=== PATIENT | female | born 1985 | race Caucasian/White ===

== ENCOUNTER 2016-09-30 13:40 | Emergency (ER) | payer BC ==
[~2016-09-30] VITALS: Ht 160 cm; Wt 105.6 kg
[~2016-09-30 13:40] MED LIST: BCPILLS PO
[2016-09-30 13:42] VITALS: TEMP 36.8; Ht 160 cm; Wt 105.6 kg
[2016-09-30] MEDS ORDERED: SODIUM CHLORIDE 0.9% 1000ML 1,000 ML IV STA ×2 (13:50→15:17)
[2016-09-30] MEDS ORDERED: ONDANSETRON INJ 2 MG/ML 2 ML VIAL IV STA ×2 (13:50→15:29)
[2016-09-30] MEDS ORDERED: FENTANYL CITRATE INJ 50 MCG/1 ML 2 ML VIAL IV ONE (14:00)
[2016-09-30 14:28] LABS: ALT/SGPT 18 U/L (12-78); BLOOD UREA NITROGEN 11 mg/dl (7-18); BUN/CREATININE RATIO 13.8 (10-20); CALCIUM 8.9 mg/dl (8.5-10.1); CARBON DIOXIDE 18 mmol/L (21-32); CHLORIDE 107 mmol/L (98-107); CREATININE 0.76 mg/dl (0.60-1.20); GLUCOSE 91 mg/dl (70-99); POTASSIUM 3.7 mmol/L (3.5-5.1); SODIUM 140 mmol/L (136-145)
[2016-09-30 14:31] LABS: ALKALINE PHOSPHATASE 65 U/L (45-117); AST/SGOT 14 U/L (15-37)
[2016-09-30] MEDS ORDERED: HYDROmorphone INJ 1 MG/ML SYR IV STA (15:17)
[2016-09-30 15:24] LABS: URINE APPEARANCE CLEAR (CLEAR); URINE BILIRUBIN NEG (NEG); URINE COLOR YELLOW; URINE EPITHELIAL CELL AUTO >30 /lpf (0-5); URINE NITRITE NEG (NEG); URINE SPECIFIC GRAVITY 1.021 (1.000-1.030); UROBILINOGEN NEG (NEG); ZZUR CULT IF INDIC CLEAN CATCH YES
[2016-09-30 15:26] LABS: MANUAL MICROSCOPIC REQUIRED? NO; REVIEW REQ? NO
[2016-09-30] MEDS ORDERED: OPTIRAY 320 IV PRN (15:30)
[2016-09-30 15:53] LABS: BASO % 0.2 %; BASO ABS # 0.02 K/uL (0-0.2); COMPLETE YES; EOS % 0.8 %; HEMATOCRIT 42.2 % (37-47); IG% 0.6 %; LYMPH % 11.2 %; LYMPH ABS # 1.46 K/uL (1.2-3.4); MEAN CELL VOLUME 86.3 fL (80-100); MEAN CORPUSCULAR HEMOGLOBIN 30.5 pg (25-34); MEAN CORPUSCULAR HGB CONC 35.3 g/dl (32-36); MEAN PLATELET VOLUME 9.5 fL (7.4-10.4); MONO % 2.9 %; NEUT % 84.3 %; PLATELET COUNT 407 K/uL (130-400); RED BLOOD COUNT 4.89 M/uL (4.2-5.4); WHITE BLOOD COUNT 13.03 K/uL (4.8-10.8)
--- NOTE | 2016-09-30 15:53 | DIAGNOSTIC IMAGING REPORT ---
CT ABD/PELVIS IV CONTRAST ONLY CLINICAL HISTORY: diffuse lower abdominal pain, vomiting COMPARISON STUDY: None. TECHNIQUE: Following the IV administration of 119 mL of Optiray-320, CT scan of the abdomen and pelvis was performed from the lung bases to the proximal femurs. Images are reviewed in the axial, sagittal, and coronal planes. IV contrast was administered without complication. CT DOSE: 1178.67 mGy.cm FINDINGS: Lower chest: The heart is normal in size and configuration, without pericardial effusion. The lung bases and pleural spaces are clear. Liver: The contrast-enhanced liver is normal in size, contour, and attenuation. There is no intrahepatic biliary ductal dilatation. The hepatic veins and portal veins are patent. Gallbladder: Unremarkable. Spleen: Normal in size and attenuation. Pancreas: Unremarkable. Adrenal glands: Unremarkable. Kidneys: There are tangential upper pole right renal cyst measuring 23 mm in aggregate. There is no hydronephrosis. Bowel: There are no transition zones indicate bowel obstruction. There is no evidence of acute diverticulitis. There is no evidence of acute appendicitis. Peritoneum: There is no intraperitoneal free air or abdominal ascites. Vasculature: The abdominal aorta is normal in course and caliber. Adenopathy: None. Pelvic viscera: The bladder, and pelvic viscera are unremarkable. Skeletal structures: No destructive osseous lesions are seen. IMPRESSION: 1. No acute intra-abdominal or pelvic findings 2. No evidence of bowel obstruction. No evidence of free air 3. No evidence of acute diverticulitis. No evidence of acute appendicitis. Electronically signed by: Travon Davison M.D. 09/30/2016 3:51 PM Dictated Date/Time: 09/30/2016 3:48 PM
[2016-09-30] MEDS ORDERED: CEFTRIAXONE SOD INJ 1 GM ADDVIAL IV STA (16:27)
[2016-09-30] MEDS ORDERED: ONDA4TAB10 SL (16:52)
[2016-09-30] MEDS ORDERED: CEPH500C PO (16:52)
--- NOTE | 2016-09-30 16:52 | EMERGENCY ROOM VISIT NOTE ---
History Report prepared by Lisa: Leonardo Torres Under the Supervision of: Dr. Manjinder Taveras M.D. First contact with patient: 13:47 Chief Complaint: GI ASSESSMENT Stated Complaint: SEVERE PAIN AROUND INTESTINES, VOMITING History of Present Illness The patient is a 31 year old female who presents to the Emergency Room with complaints of persistent vomiting that started this morning. The patient also complains of severe lower abdominal pain. The pain does not radiate to her back. She denies any fevers, diarrhea, blood in her stools or vomit, burning with urination. leg swelling, or rashes. The patient cannot keep anything down without vomiting. She hasn't taken anything for nausea. The patient has a history of endometriosis. She cannot recall her last period as she has been on control for years. Source of History: patient Onset: this morning Position: other (GI) Quality: other (vomiting) Timing: other (persistent) Associated Symptoms: + abdominal pain, + nausea, No back pain, No diarrhea, No fevers, No hematochezia, No rash, No urinary symptoms Review of Systems See HPI for pertinent positives & negatives. A total of 10 systems reviewed and were otherwise negative. Past Medical & Surgical Medical Problems: (1) Endometriosis Family History Cancer Diabetes mellitus Heart disease Hypertension Lung disease Social History Smoking Status: Never Smoker Alcohol Use: occasionally Marital Status: Housing Status: lives with family Current/Historical Medications Scheduled Control Pills ( Control Pills), 1 TAB PO DAILY Cephalexin Monohydrate (Keflex), 500 MG PO TID Ondasetron Odt (Zofran Odt), 4 MG SL Q6H Allergies Coded Allergies: Ranitidine (Verified Allergy, Unknown, rash, 09/30/16) Physical Exam Vital Signs Date Time Temp Pulse Resp B/P Pulse Ox O2 Delivery O2 Flow Rate FiO2 09/30/16 17:16 82 16 129/78 97 Room Air 09/30/16 16:04 87 18 123/77 99 Room Air 09/30/16 15:03 95 18 144/83 98 Room Air 09/30/16 13:42 36.8 121 18 126/80 97 Room Air Physical Exam GENERAL: Patient is uncomfortable appearing, crying, in moderate distress. HEENT: No acute trauma, normocephalic atraumatic, mucous membranes moist, no nasal congestion, no scleral icterus. NECK: No stridor, no adenopathy, no meningismus, trachea is midline. LUNGS: No dyspnea. Clear to auscultation and equal bilaterally. No wheeze, no rhonchi. HEART: Tachycardic, regular rhythm. No murmurs, rubs, gallops appreciated. ABDOMEN: Soft, vague suprapubic tenderness to palpation, bowel sounds positive, no masses appreciated, no peritonitis. BACK: No midline tenderness, no CVA tenderness EXTREMITIES: Normal motion all extremities, no cyanosis, no edema. NEUROLOGIC: Alert and oriented, no acute motor or sensory deficits, no focal weakness, cranial nerves grossly intact. SKIN: No rash, no jaundice, no diaphoresis. Medical Decision & Procedures ER Provider Diagnostic Interpretation: CT results as stated below per interpretation by me and the radiologist: CT ABD/PELVIS IV CONTRAST ONLY CLINICAL HISTORY: diffuse lower abdominal pain, vomiting COMPARISON STUDY: None. TECHNIQUE: Following the IV administration of 119 mL of Optiray-320, CT scan of the abdomen and pelvis was performed from the lung bases to the proximal femurs. Images are reviewed in the axial, sagittal, and coronal planes. IV contrast was administered without complication. CT DOSE: 1178.67 mGy.cm FINDINGS: Lower chest: The heart is normal in size and configuration, without pericardial effusion. The lung bases and pleural spaces are clear. Liver: The contrast-enhanced liver is normal in size, contour, and attenuation. There is no intrahepatic biliary ductal dilatation. The hepatic veins and portal veins are patent. Gallbladder: Unremarkable. Spleen: Normal in size and attenuation. Pancreas: Unremarkable. Adrenal glands: Unremarkable. Kidneys: There are tangential upper pole right renal cyst measuring 23 mm in aggregate. There is no hydronephrosis. Bowel: There are no transition zones indicate bowel obstruction. There is no evidence of acute diverticulitis. There is no evidence of acute appendicitis. Peritoneum: There is no intraperitoneal free air or abdominal ascites. Vasculature: The abdominal aorta is normal in course and caliber. Adenopathy: None. Pelvic viscera: The bladder, and pelvic viscera are unremarkable. Skeletal structures: No destructive osseous lesions are seen. IMPRESSION: 1. No acute intra-abdominal or pelvic findings 2. No evidence of bowel obstruction. No evidence of free air 3. No evidence of acute diverticulitis. No evidence of acute appendicitis. Electronically signed by: Travon Davison M.D. 09/30/2016 3:51 PM Dictated Date/Time: 09/30/2016 3:48 PM Laboratory Results 09/30/16 13:55 Red Blood Count 4.89, Mean Corpuscular Volume 86.3, Mean Corpuscular Hemoglobin 30.5, Mean Corpuscular Hemoglobin Concent 35.3, Mean Platelet Volume 9.5, Neutrophils (%) (Auto) 84.3, Lymphocytes (%) (Auto) 11.2, Monocytes (%) (Auto) 2.9, Eosinophils (%) (Auto) 0.8, Basophils (%) (Auto) 0.2, Neutrophils # (Auto) 10.98, Lymphocytes # (Auto) 1.46, Monocytes # (Auto) 0.38, Eosinophils # (Auto) 0.11, Basophils # (Auto) 0.02 09/30/16 13:55 Test 09/30/16 13:55 09/30/16 15:10 White Blood Count 13.03 K/uL (4.8-10.8) Red Blood Count 4.89 M/uL (4.2-5.4) Hemoglobin 14.9 g/dL (12.0-16.0) Hematocrit 42.2 % (37-47) Mean Corpuscular Volume 86.3 fL (80-100) Mean Corpuscular Hemoglobin 30.5 pg (25-34) Mean Corpuscular Hemoglobin Concent 35.3 g/dl (32-36) Platelet Count 407 K/uL (130-400) Mean Platelet Volume 9.5 fL (7.4-10.4) Neutrophils (%) (Auto) 84.3 % Lymphocytes (%) (Auto) 11.2 % Monocytes (%) (Auto) 2.9 % Eosinophils (%) (Auto) 0.8 % Basophils (%) (Auto) 0.2 % Neutrophils # (Auto) 10.98 K/uL (1.4-6.5) Lymphocytes # (Auto) 1.46 K/uL (1.2-3.4) Monocytes # (Auto) 0.38 K/uL (0.11-0.59) Eosinophils # (Auto) 0.11 K/uL (0-0.5) Basophils # (Auto) 0.02 K/uL (0-0.2) RDW Standard Deviation 41.0 fL (36.4-46.3) RDW Coefficient of Variation 13.0 % (11.5-14.5) Immature Granulocyte % (Auto) 0.6 % Immature Granulocyte # (Auto) 0.08 K/uL (0.00-0.02) Anion Gap 15.0 mmol/L (3-11) Est Creatinine Clear Calc Drug Dose 124.7 ml/min Estimated GFR () 121.1 Estimated GFR (Non- 104.5 BUN/Creatinine Ratio 13.8 (10-20) Calcium Level 8.9 mg/dl (8.5-10.1) Total Bilirubin 0.5 mg/dl (0.2-1) Direct Bilirubin < 0.1 mg/dl (0-0.2) Aspartate Amino Transf (AST/SGOT) 14 U/L (15-37) Alanine Aminotransferase (ALT/SGPT) 18 U/L (12-78) Alkaline Phosphatase 65 U/L (45-117) Total Protein 8.1 gm/dl (6.4-8.2) Albumin 3.9 gm/dl (3.4-5.0) Lipase 120 U/L (73-393) Urine Color YELLOW Urine Appearance CLEAR (CLEAR) Urine pH 5.0 (4.5-7.5) Urine Specific [place] 1.021 (1.000-1.030) Urine Protein NEG (NEG) Urine Glucose (UA) NEG (NEG) Urine Ketones 1+ (NEG) Urine Occult Blood 2+ (NEG) Urine Nitrite NEG (NEG) Urine Bilirubin NEG (NEG) Urine Urobilinogen NEG (NEG) Urine Leukocyte Esterase SMALL (NEG) Urine WBC (Auto) 10-30 /hpf (0-5) Urine RBC (Auto) 5-10 /hpf (0-4) Urine Hyaline Casts (Auto) 10-30 /lpf (0-5) Urine Epithelial Cells (Auto) >30 /lpf (0-5) Urine Bacteria (Auto) NEG (NEG) Urine Test NEG (NEG) Laboratory results as reviewed by me. Medications Administered Medications (Trade) Dose Ordered Sig/Joseluis Route Start Time Stop Time Status Last Admin Dose Admin Ondansetron HCl (Zofran Inj) 8 mg NOW STAT IV 09/30/16 13:50 09/30/16 13:52 DC 09/30/16 14:03 8 MG Fentanyl Citrate 100 mcg 100 mcg NOW ONCE IV 09/30/16 14:00 09/30/16 14:01 DC 09/30/16 14:03 100 MCG Sodium Chloride (Nss 1000ml) 1,000 ml @ 999 mls/hr Q1H1M STAT IV 09/30/16 13:50 09/30/16 14:50 DC 09/30/16 13:50 999 MLS/HR Hydromorphone HCl 1 mg 1 mg NOW STAT IV 09/30/16 15:17 09/30/16 15:18 DC 09/30/16 15:25 1 MG Sodium Chloride (Nss 1000ml) 1,000 ml @ 999 mls/hr Q1H1M STAT IV 09/30/16 15:17 09/30/16 16:17 DC 09/30/16 15:25 999 MLS/HR Ondansetron HCl (Zofran Inj) 4 mg NOW STAT IV 09/30/16 15:29 09/30/16 15:30 DC 09/30/16 15:32 4 MG Ceftriaxone Sodium (Rocephin Inj) 1 gm NOW STAT IV 09/30/16 16:27 09/30/16 16:29 DC 09/30/16 16:34 1 GM Oxycodone HCl (Roxicodone Immediate Rel 5MG Home Pack) 1 homepack UD ONCE PO 09/30/16 17:00 09/30/16 17:01 DC 09/30/16 17:17 1 HOMEPACK Ondansetron HCl (ZOFRAN ODT 4MG Home Pack) 1 homepack UD ONCE PO 09/30/16 17:00 09/30/16 17:01 DC 09/30/16 17:17 1 HOMEPACK ED Course 1340: The patient was evaluated in room B10. A complete history and physical exam was performed. 1350: NSS 1000 ml @ 999 mls/hr, Zofran 8 mg IV. 1400: Fentanyl 100 mcg IV. 1420: The patient is feeling a lot better. 1515: The patient's pain is returning. I discussed the pros and cons of CT scanning. She would like a CT scan. 1517: NSS 1000 ml @ 999 mls/hr, Dilaudid 1 mg IV. 1528: The patient is feeling nauseous. 1529: Zofran 4 mg IV. 1622: The patient is feeling much better. She just feels mildly dizzy. I discussed the pros and cons of treating hemorrhagic cystitis with antibiotics. She would like to try them. 162: Rocephin 1 gm IV. 165: Reassessed the patient. Discussed the results and treatment plan with her. She verbalized understanding and agreement. The patient is ready for discharge. 1700: Zofran Odt 4 mg PO home pack, Oxycodone IR 5 mg PO home pack. Medical Decision Differential: Gastroenteritis, Food Borne, Esophageal Perforation, , Electrolyte Abnormality, Dehydration, Intraabdominal Infection, UTI/ Pyelonephritis, Bowel Obstruction, Biliary Pathology, amongst other pathology entertained. Very worked up 31 yr old female arrives with severe vomiting and lower abdominal pain. Seems much improved with above though pain returning and given no recent issues with endometriosis, discussed with Pt pros/con CT and she wished to proceed. Fortunately CT unremarkable. She likely has viral illness vs endometrial flair up, though with blood in urine this may be cystitis. No clear stone on CT fortunately, nor appendicitis/surgical issue for that matter. We will treat hematuria as possible infectious in etiology. She will be started on Keflex and I will send home with limited number pain meds. Aware RTED if worsening or other concerns. Impression Primary Impression: Suprapubic pain, acute Additional Impressions: Vomiting Hematuria Scribe Attestation The scribe's documentation has been prepared under my direction and personally reviewed by me in its entirety. I confirm that the note above accurately reflects all work, treatment, procedures, and medical decision making performed by me. Departure Information Dispostion Home / Self-Care Prescriptions Ondasetron Odt (ZOFRAN ODT) 4 Mg Tab 4 MG SL Q6H for Nausea, #15 TAB Prov: Manjinder Taveras M.D. 09/30/16 Cephalexin Monohydrate (Keflex) 500 Mg Cap 500 MG PO TID for 5 Days, #15 CAP Prov: Manjinder Taveras M.D. 09/30/16 Referrals Danni Bethea C.R.N.P. (PCP) Forms HOME CARE DOCUMENTATION FORM, IMPORTANT VISIT INFORMATION Patient Instructions Abdominal Pain - [facility], Replaced By [facility] Additional Instructions You have received a narcotic pain medication. These medications may cause drowsiness and should not be used with other sedative medications. Do not drive , drink alcohol, perform dangerous activities, nor make important decisions after taking these medications. parts counterman use or inappropriate use may lead to addiction. Problem Qualifiers Additional Impressions: Vomiting Vomiting type: unspecified Vomiting Intractability: non-intractable Nausea presence: with nausea Qualified Codes: R11.2 - Nausea with vomiting, unspecified
[2016-09-30] MEDS ORDERED: ONDANSETRON HOME PACK 4MG OD TAB PO ONE (17:00)
[2016-09-30] MEDS ORDERED: OXYCODONE IR HOME PACK PO ONE (17:00)
[2016-09-30 17:16] VITALS: BP 129/78; PULSE 82; O2SAT 97
== END 2016-09-30 17:32 | disposition home or self-care (01) ==
LOC: C.EDB 13:43
DX: R10.30 Lower abdominal pain, unspecified (principal); R11.2 Nausea with vomiting, unspecified; R31.9 Hematuria, unspecified; Z83.3 Family history of diabetes mellitus; Z82.49 Family history of ischemic heart disease and other diseases of the circulatory system